=== PATIENT | male | born 1930 | race Caucasian/White ===

== ENCOUNTER 2017-05-13 06:00 | Day surgery (SDC) | payer OTHER ==
[~2017-05-13] VITALS: Ht 165.1 cm; Wt 66.2 kg
[2017-05-13 06:27] VITALS: BP 131/66
[2017-05-13 13:34] VITALS: BP 117/60
== END 2017-05-13 11:40 | disposition home or self-care (01) ==
LOC: OR 06:00
PROVIDERS: Neuromusculoskeletal Medicine, Sports Medicine
PROC: 0JBD0ZZ Excision of Right Upper Arm Subcutaneous Tissue and Fascia, Open Approach (ICD-10-PCS; 2017-05-13)
PROC: 0PB90ZZ Excision of Right Clavicle, Open Approach (ICD-10-PCS; 2017-05-13)
PROC: 0JQD0ZZ Repair Right Upper Arm Subcutaneous Tissue and Fascia, Open Approach (ICD-10-PCS; principal; 2017-05-13 07:30)
DX: M71.311 Other bursal cyst, right shoulder (principal); M19.011 Primary osteoarthritis, right shoulder; I10 Essential (primary) hypertension; E11.9 Type 2 diabetes mellitus without complications; E03.9 Hypothyroidism, unspecified; Z79.84 Long term (current) use of oral hypoglycemic drugs; Z95.1 Presence of aortocoronary bypass graft
CPT/HCPCS: 82962; J0330; J0690; J2250; J2270; J2405; J2704; J2710; J3010; J3490; J7030